=== PATIENT | female | born 1950 | race Two or more races ===

== ENCOUNTER → 2022-04-11 | Outpatient (CLI) | payer OTHER | END | disposition home or self-care (01) | LOC: NUCLEAR 04-05 09:27 | PROVIDERS: ATTEND Internal Medicine | DX: I20.9 Angina pectoris, unspecified (principal); I11.9 Hypertensive heart disease without heart failure; R06.00 Dyspnea, unspecified; Z95.810 Presence of automatic (implantable) cardiac defibrillator; I50.9 Heart failure, unspecified; N20.0 Calculus of kidney; Z86.73 Personal history of transient ischemic attack (TIA), and cerebral infarction without residual deficits; G90.09 Other idiopathic peripheral autonomic neuropathy ==